=== PATIENT | male | born 1995 | race Two or more races ===

== ENCOUNTER 2023-05-15 15:15 | Emergency (ER) | payer MEDICAID, OTHER ==
[~2023-05-15] VITALS: Ht 177.8 cm; Wt 99.8 kg
[2023-05-15 15:34] VITALS: BP 128/83; TEMP 98.5; O2SAT 97
[2023-05-15] MEDS ORDERED: VENL75CA62 PO (15:54)
== END 2023-05-15 18:19 | disposition home or self-care (01) ==
LOC: ER 15:26
DX: F41.9 Anxiety disorder, unspecified (principal); Z60.2 Problems related to living alone

== ENCOUNTER 2023-07-02 10:32 | Emergency (ER) | payer MEDICAID ==
[~2023-07-02] VITALS: Ht 180.3 cm; Wt 104.3 kg
[~2023-07-02 10:32] MED LIST: VENL75CA62 PO
[2023-07-02 11:36] VITALS: BP 145/92; TEMP 97.9; O2SAT 98
== END 2023-07-02 12:37 | disposition home or self-care (01) ==
LOC: ER 10:37
DX: Z71.1 Person with feared health complaint in whom no diagnosis is made (principal); Z60.2 Problems related to living alone

== ENCOUNTER 2024-02-24 06:47 | Emergency (ER) | payer SELFPAY ==
[~2024-02-24] VITALS: Ht 180.3 cm; Wt 104.3 kg
[2024-02-24] MEDS ORDERED: PANTOPRAZOLE 40 MG VIAL ONE (07:32)
[2024-02-24] MEDS ORDERED: KETOROLAC TROMETHAMINE INJ 30 MG/ML VIAL ONE (07:32)
[2024-02-24 07:48] LABS: BASOPHILS # (AUTO) 0.1 K/uL (0.0-0.2); BASOPHILS % (AUTO) 0.9 % (0.0-2.0); EOSINOPHILS # (AUTO) 0.4 K/uL (0.0-0.7); EOSINOPHILS % (AUTO) 5.7 % (0.0-6.0); HEMATOCRIT 40 % (39-51); HEMOGLOBIN 13.5 g/dL (13.5-17.5); LYMPHOCYTES # (AUTO) 1.4 K/uL (0.8-4.8); LYMPHOCYTES % (AUTO) 22.4 % (20.0-44.0); MEAN CORPUSCULAR HEMOGLOBIN 29 PG (26.0-33.0); MEAN CORPUSCULAR HGB CONC 34 g/dl (31.0-36.0); MEAN CORPUSCULAR VOLUME 85 fL (80-96); MONOCYTES # (AUTO) 0.5 K/uL (0.1-1.30); MONOCYTES % (AUTO) 8.1 % (2.0-12.0); NEUTROPHILS % (AUTO) 62.9 % (43.0-81.0); PLATELET COUNT (AUTO) 258 K/uL (150-450); RED BLOOD CELL COUNT(AUTO) 4.63 MIL/uL (4.5-6.0); RED CELL DISTRIBUTION WIDTH 13.3 % (11.5-15.0); WHITE BLOOD COUNT (AUTO) 6.3 K/uL (4.3-11.0)
[2024-02-24] MEDS: IV NS 0.9% 1,000 ML BAG IV ONE (07:49)
[2024-02-24] MEDS: PANTOPRAZOLE 40 MG VIAL IV ONE (07:49)
[2024-02-24] MEDS: KETOROLAC TROMETHAMINE 15 MG/ML VIAL IV ONE (07:50)
[2024-02-24 08:01] LABS: ALBUMIN 3.2 g/dL (3.4-5.0); BILIRUBIN,DIRECT 0.2 mg/dL (0.0-0.2); BILIRUBIN,TOTAL 0.9 mg/dL (0.2-1.0); CALCIUM, SERUM 9.2 mg/dL (8.5-10.1); CREATININE 0.9 mg/dL (0.6-1.3); TOTAL PROTEIN, SERUM 7.4 g/dL (6.4-8.2)
[2024-02-24 10:02] LABS: APPEARANCE,URINE CLEAR (CLEAR); BILIRUBIN,URINE NEGATIVE (NEGATIVE); BLOOD, URINE NEGATIVE Ery/uL (NEGATIVE); COLOR,URINE YELLOW (YELLOW); KETONES,URINE NEGATIVE (NEGATIVE); LEUKOCYTE ESTERASE ,URINE NEGATIVE (NEGATIVE); NITRITE, URINE NEGATIVE (NEGATIVE); PROTEIN,URINE NEGATIVE (NEGATIVE); UGLUCOSE NEGATIVE (NEGATIVE)
[2024-02-24] MEDS ORDERED: IBUP-1953 PO (10:10)
[2024-02-24] MEDS ORDERED: FAMOTIDINE (20 MG) 20 MG TABLET ONE (10:20)
[2024-02-24] MEDS ORDERED: cetrizine 10 MG TABLET ONE (10:20)
[2024-02-24] MEDS: FAMOTIDINE (20 MG) 20 MG TABLET PO ONE (10:21)
[2024-02-24] MEDS: cetrizine 10 MG TABLET PO ONE (10:22)
[2024-02-24 10:24] VITALS: BP 128/85; TEMP 98.6; O2SAT 100
== END 2024-02-24 10:24 | disposition home or self-care (01) ==
LOC: ER 06:56
DX: K76.0 Fatty (change of) liver, not elsewhere classified (principal); R10.13 Epigastric pain; E66.9 Obesity, unspecified; Z79.899 Other long term (current) drug therapy; Z60.2 Problems related to living alone; Z68.32 Body mass index [BMI] 32.0-32.9, adult
CPT/HCPCS: 99285; 74176; 96374; 71045; 96361; 96375; 85025; 80048; 83690; 80076; 81003; 36415; J1885; J7030; C9113